=== PATIENT | male | born 1970 | race African-American/Black ===

== ENCOUNTER 2017-03-04 03:52 | Inpatient (IN) | payer MEDICAID ==
[~2017-03-04] VITALS: Ht 170.2 cm; Wt 101.3 kg
[2017-03-04] MEDS ORDERED: BUME1TAB30 PO (04:10)
[2017-03-04] MEDS ORDERED: CARV12 PO (04:10)
[2017-03-04 04:12] LABS: GLUCOSE,POINT OF CARE 149 MG/DL (70-110)
[2017-03-04] MEDS ORDERED: NITROGLYCERIN 2% (1 GM=INCH) PACKET TP ONE (04:30)
[2017-03-04] MEDS ORDERED: BUMETANIDE 0.25 MG/ML 10 ML VIAL IVP ONE (04:30)
[2017-03-04 04:45] LABS: APPEARANCE,URINE CLEAR (CLEAR); GLUCOSE, URINE (UA) NEGATIVE (NEGATIVE); KETONES,URINE NEGATIVE (NEGATIVE); LEUKOCYTE ESTERASE ,URINE NEGATIVE (NEGATIVE); OCCULT BLOOD,URINE NEGATIVE (NEGATIVE); PROTEIN,URINE NEGATIVE (NEGATIVE)
[2017-03-04 04:46] LABS: BASOPHILS # (AUTO) 0.19 K/uL (0.00-0.20); BASOPHILS % (AUTO) 1.4 % (0.0-2.0); EOSINOPHILS # (AUTO) 0.16 K/uL (0.00-0.70); EOSINOPHILS % (AUTO) 1.21 % (1.0-6.0); HEMATOCRIT 43.9 % (41-53); HEMOGLOBIN 13.9 g/dL (13.5-17.5); LYMPHOCYTES # (AUTO) 1.9 K/uL (1.0-4.8); LYMPHOCYTES % (AUTO) 14.4 % (22.0-44.0); MEAN CORPUSCULAR HEMOGLOBIN 27.2 pg (26.0-34.0); MEAN CORPUSCULAR HGB CONC 31.6 G/dL (31.0-37.0); MEAN CORPUSCULAR VOLUME 86 fL (80-100); MONOCYTES # (AUTO) 1.2 K/uL (0.1-1.0); MONOCYTES % (AUTO) 9.3 % (2.0-9.0); NEUTROPHILS # (AUTO) 9.8 K/uL (1.8-7.7); NEUTROPHILS % (AUTO) 73.7 % (40.0-70.0); PLATELET COUNT (AUTO) 315 K/uL (150-450); RED BLOOD CELL COUNT(AUTO) 5.09 MIL/uL (4.50-5.90); RED CELL DISTRIBUTION WIDTH 17.8 % (11.5-14.5); WHITE BLOOD COUNT (AUTO) 13.3 K/uL (4.5-11.0)
[2017-03-04 04:46] LABS: ADD UA MICROSCOPIC NO
[2017-03-04 04:50] LABS: CALCIUM, TOTAL 8.1 mg/dL (8.8-10.5); CREATININE 1.61 mg/dL (0.60-1.30); POTASSIUM 4.3 mmol/L (3.5-5.1)
[2017-03-04 04:56] LABS: BILIRUBIN,TOTAL 0.9 mg/dL (0.1-1.0); TOTAL PROTEIN, SERUM 6.6 g/dL (6.4-8.2)
[2017-03-04] MEDS ORDERED: ACETAMINOPHEN 325 MG TABLET PO PRN (05:45)
[2017-03-04] MEDS ORDERED: ONDANSETRON HCL 4 MG/2 ML VIAL IVP PRN (05:45)
[2017-03-04] MEDS ORDERED: 0.9% SODIUM CHLORIDE 10 ML SYRINGE IVP PRN (05:45)
[2017-03-04 08:19] VITALS: BP 124/76
[2017-03-04 11:26] VITALS: BP 124/72
[2017-03-04] MEDS ORDERED: SPIR25 PO (11:37)
[2017-03-04] MEDS ORDERED: LISI-661 PO (11:38)
[2017-03-04] MEDS ORDERED: NITROGLYCERIN 2% (1 GM=INCH) PACKET TP SCH (12:00)
[2017-03-04] MEDS ORDERED: FUROSEMIDE 20 MG/2 ML VIAL IVP ONE (13:45)
[2017-03-04] MEDS ORDERED: HEPARIN SODIUM 25000 UNITS/D5W 250 ML IV PRN (14:22)
[2017-03-04] MEDS ORDERED: HEPARIN SODIUM,PORCINE 5,000 UNITS/ML VIAL IVP PRN ×3 (14:30→15:00)
[2017-03-04 14:45] LABS: BASOPHILS % (AUTO) 0.8 % (0.0-2.0); EOSINOPHILS % (AUTO) 1.4 % (1.0-6.0); HEMATOCRIT 45.2 % (41-53); LYMPHOCYTES # (AUTO) 1.7 K/uL (1.0-4.8); LYMPHOCYTES % (AUTO) 12.6 % (22.0-44.0); MEAN CORPUSCULAR HEMOGLOBIN 26.6 pg (26.0-34.0); MEAN CORPUSCULAR HGB CONC 30.9 G/dL (31.0-37.0); MEAN CORPUSCULAR VOLUME 86 fL (80-100); MONOCYTES # (AUTO) 1.4 K/uL (0.1-1.0); MONOCYTES % (AUTO) 10.1 % (2.0-9.0); NEUTROPHILS # (AUTO) 10.2 K/uL (1.8-7.7); NEUTROPHILS % (AUTO) 75.1 % (40.0-70.0); PLATELET COUNT (AUTO) 302 K/uL (150-450); RED BLOOD CELL COUNT(AUTO) 5.27 MIL/uL (4.50-5.90); RED CELL DISTRIBUTION WIDTH 18.2 % (11.5-14.5); WHITE BLOOD COUNT (AUTO) 13.6 K/uL (4.5-11.0)
[2017-03-04 14:46] LABS: RBC MORPHOLOGY COMMENT ABNORMAL RBC MORPH
[2017-03-04 14:56] LABS: INR 1.1 (0.9-1.1); PROTHROMBIN TIME 11.9 SEC (9.4-11.6)
[2017-03-04] MEDS ORDERED: HEPARIN SODIUM,PORCINE 5,000 UNITS/ML VIAL IVP ONE (15:00)
[2017-03-04] MEDS: HEPARIN SODIUM 25000 UNITS/D5W 250 ML IV PRN (15:33)
[2017-03-04 15:56] VITALS: BP 119/79
[2017-03-04] MEDS ORDERED: HEPARIN SODIUM,PORCINE 5,000 UNITS/ML VIAL SQ SCH (16:00)
[2017-03-04] MEDS ORDERED: PNEUMOCOCCAL VACCINE POLYVALENT 0.5 ML VIAL [PPSV23] IM ONE (18:45)
[2017-03-04 19:38] VITALS: BP 118/118
[2017-03-04] MEDS: BUMETANIDE 0.25 MG/ML 10 ML VIAL IVP SCH (20:45)
[2017-03-04] MEDS: WARFARIN SODIUM 2.5 MG TABLET PO SCH (20:45)
[2017-03-04 23:33] VITALS: BP 118/69
[2017-03-05 05:06] VITALS: BP 124/87
[2017-03-05] MEDS: HEPARIN SODIUM 25000 UNITS/D5W 250 ML IV PRN ×2 (05:28→18:28)
[2017-03-05 05:32] LABS: INR 1.2 (0.9-1.1); PROTHROMBIN TIME 12.3 SEC (9.4-11.6)
[2017-03-05 07:40] VITALS: BP 115/88
[2017-03-05] MEDS: CARVEDILOL 3.125 MG TABLET PO SCH ×2 (08:59→20:46)
[2017-03-05] MEDS: BUMETANIDE 0.25 MG/ML 10 ML VIAL IVP SCH ×2 (08:59→20:47)
[2017-03-05] MEDS: HEPARIN SODIUM,PORCINE 5,000 UNITS/ML VIAL IVP PRN (09:02)
[2017-03-05 11:08] VITALS: BP 115/80
[2017-03-05] MEDS: VALSARTAN 40 MG TABLET PO SCH ×2 (11:22→20:46)
[2017-03-05 12:32] LABS: ANION GAP 4 mmol/L (8-16); CALCIUM, TOTAL 8.8 mg/dL (8.8-10.5); CARBON DIOXIDE 36 mmol/L (22-29); CHLORIDE 97 mmol/L (98-107); CREATININE 1.39 mg/dL (0.60-1.30); GLOMERULAR FILTR. RATE CALC > 60 mL/min (>60); PHOSPHORUS 3.9 mg/dL (2.5-4.9); POTASSIUM 3.9 mmol/L (3.5-5.1); SODIUM SERUM 137 mmol/L (136-145); UREA NITROGEN, BLOOD 25 mg/dL (7-18)
[2017-03-05 15:13] VITALS: BP 110/77
[2017-03-05 19:35] VITALS: BP 131/82
[2017-03-05] MEDS: WARFARIN SODIUM 2.5 MG TABLET PO SCH (20:46)
[2017-03-06 00:08] VITALS: BP 108/56
[2017-03-06 05:23] VITALS: BP 114/66
[2017-03-06 06:44] LABS: ALANINE AMINOTRANSFERASE 63 U/L (12-78); ALBUMIN 3.1 g/dL (3.4-5.0); ANION GAP 3 mmol/L (8-16); ASPARTATE AMINOTRANSFERASE 47 U/L (15-37); BILIRUBIN,TOTAL 1.5 mg/dL (0.1-1.0); CALCIUM, TOTAL 8.3 mg/dL (8.8-10.5); CARBON DIOXIDE 34 mmol/L (22-29); CHLORIDE 97 mmol/L (98-107); CREATININE 1.33 mg/dL (0.60-1.30); GLOMERULAR FILTR. RATE CALC > 60 mL/min (>60); POTASSIUM 3.9 mmol/L (3.5-5.1); SODIUM SERUM 134 mmol/L (136-145); TOTAL PROTEIN, SERUM 7.3 g/dL (6.4-8.2); UREA NITROGEN, BLOOD 24 mg/dL (7-18)
[2017-03-06 06:46] LABS: INR 1.1 (0.9-1.1); PROTHROMBIN TIME 11.7 SEC (9.4-11.6)
[2017-03-06 06:54] LABS: BASOPHILS % (AUTO) 0.5 % (0.0-2.0); EOSINOPHILS % (AUTO) 0.8 % (1.0-6.0); HEMATOCRIT 47.3 % (41-53); HEMOGLOBIN 14.7 g/dL (13.5-17.5); LYMPHOCYTES % (AUTO) 12.5 % (22.0-44.0); MEAN CORPUSCULAR HEMOGLOBIN 26.5 pg (26.0-34.0); MEAN CORPUSCULAR VOLUME 86 fL (80-100); MONOCYTES # (AUTO) 1.5 K/uL (0.1-1.0); MONOCYTES % (AUTO) 9.3 % (2.0-9.0); NEUTROPHILS # (AUTO) 12.1 K/uL (1.8-7.7); NEUTROPHILS % (AUTO) 76.9 % (40.0-70.0); PLATELET COUNT (AUTO) 307 K/uL (150-450); RED BLOOD CELL COUNT(AUTO) 5.53 MIL/uL (4.50-5.90); RED CELL DISTRIBUTION WIDTH 17.8 % (11.5-14.5); WHITE BLOOD COUNT (AUTO) 15.8 K/uL (4.5-11.0)
[2017-03-06 07:52] VITALS: BP 121/79
[2017-03-06] MEDS: BUMETANIDE 0.25 MG/ML 10 ML VIAL IVP SCH ×2 (08:02→21:40)
[2017-03-06] MEDS: HEPARIN SODIUM,PORCINE 5,000 UNITS/ML VIAL IVP PRN (08:05)
[2017-03-06] MEDS: VALSARTAN 40 MG TABLET PO SCH ×2 (09:05→23:38)
[2017-03-06] MEDS: CARVEDILOL 3.125 MG TABLET PO SCH ×2 (09:06→21:40)
[2017-03-06 11:11] VITALS: BP 127/74
[2017-03-06] MEDS: HEPARIN SODIUM 25000 UNITS/D5W 250 ML IV PRN (11:48)
[2017-03-06] MEDS ORDERED: MAGNESIUM HYDROXIDE SUSPENSION 30 ML UDCUP PO PRN (14:30)
[2017-03-06] MEDS: POLYETHYLENE GLYCOL 3350 17 GM PACKET PO SCH (15:34)
[2017-03-06 20:22] VITALS: BP 113/61
[2017-03-06] MEDS: WARFARIN SODIUM 2.5 MG TABLET PO SCH (21:40)
[2017-03-06 23:27] VITALS: BP 110/66
[2017-03-07] MEDS: HEPARIN SODIUM 25000 UNITS/D5W 250 ML IV PRN ×2 (01:16→13:33)
[2017-03-07 04:22] VITALS: BP 123/64
[2017-03-07 05:43] LABS: BASOPHILS % (AUTO) 0.2 % (0.0-2.0); EOSINOPHILS % (AUTO) 2.1 % (1.0-6.0); HEMATOCRIT 46.6 % (41-53); HEMOGLOBIN 14.4 g/dL (13.5-17.5); LYMPHOCYTES # (AUTO) 1.9 K/uL (1.0-4.8); LYMPHOCYTES % (AUTO) 14.9 % (22.0-44.0); MEAN CORPUSCULAR HEMOGLOBIN 26.5 pg (26.0-34.0); MEAN CORPUSCULAR VOLUME 86 fL (80-100); MONOCYTES # (AUTO) 1.2 K/uL (0.1-1.0); MONOCYTES % (AUTO) 9.3 % (2.0-9.0); NEUTROPHILS # (AUTO) 9.3 K/uL (1.8-7.7); NEUTROPHILS % (AUTO) 73.5 % (40.0-70.0); PLATELET COUNT (AUTO) 297 K/uL (150-450); RED BLOOD CELL COUNT(AUTO) 5.44 MIL/uL (4.50-5.90); RED CELL DISTRIBUTION WIDTH 17.9 % (11.5-14.5); WHITE BLOOD COUNT (AUTO) 12.6 K/uL (4.5-11.0)
[2017-03-07 05:52] LABS: INR 1.1 (0.9-1.1); PROTHROMBIN TIME 11.4 SEC (9.4-11.6)
[2017-03-07 05:58] LABS: ALANINE AMINOTRANSFERASE 61 U/L (12-78); ALBUMIN 2.9 g/dL (3.4-5.0); ANION GAP 1 mmol/L (8-16); ASPARTATE AMINOTRANSFERASE 43 U/L (15-37); BILIRUBIN,TOTAL 0.9 mg/dL (0.1-1.0); CALCIUM, TOTAL 8.6 mg/dL (8.8-10.5); CARBON DIOXIDE 30 mmol/L (22-29); CHLORIDE 96 mmol/L (98-107); CREATININE 1.22 mg/dL (0.60-1.30); GLOMERULAR FILTR. RATE CALC > 60 mL/min (>60); POTASSIUM 4.2 mmol/L (3.5-5.1); SODIUM SERUM 127 mmol/L (136-145); UREA NITROGEN, BLOOD 24 mg/dL (7-18)
[2017-03-07 07:35] VITALS: BP 110/64
[2017-03-07] MEDS: CARVEDILOL 3.125 MG TABLET PO SCH ×2 (08:23→21:21)
[2017-03-07] MEDS: VALSARTAN 40 MG TABLET PO SCH ×2 (08:23→21:21)
[2017-03-07] MEDS: POLYETHYLENE GLYCOL 3350 17 GM PACKET PO SCH (08:23)
[2017-03-07 09:12] LABS: RBC MORPHOLOGY COMMENT ABNORMAL RBC MORPH
[2017-03-07 11:27] VITALS: BP 112/59
[2017-03-07 15:24] VITALS: BP 142/71
[2017-03-07 19:21] VITALS: BP 109/69
[2017-03-07] MEDS: WARFARIN SODIUM 2.5 MG TABLET PO SCH (21:21)
[2017-03-08 00:46] VITALS: BP 132/67
[2017-03-08] MEDS: HEPARIN SODIUM 25000 UNITS/D5W 250 ML IV PRN ×2 (01:58→07:57)
[2017-03-08 04:14] VITALS: BP 108/64
[2017-03-08 07:01] LABS: INR 1.1 (0.9-1.1); PROTHROMBIN TIME 11.3 SEC (9.4-11.6)
[2017-03-08 07:07] LABS: BASOPHILS % (AUTO) 0.3 % (0.0-2.0); EOSINOPHILS % (AUTO) 3.1 % (1.0-6.0); HEMATOCRIT 47.7 % (41-53); HEMOGLOBIN 14.7 g/dL (13.5-17.5); LYMPHOCYTES # (AUTO) 1.5 K/uL (1.0-4.8); LYMPHOCYTES % (AUTO) 13.3 % (22.0-44.0); MEAN CORPUSCULAR HEMOGLOBIN 26.4 pg (26.0-34.0); MEAN CORPUSCULAR HGB CONC 30.7 G/dL (31.0-37.0); MEAN CORPUSCULAR VOLUME 86 fL (80-100); MONOCYTES # (AUTO) 1.1 K/uL (0.1-1.0); MONOCYTES % (AUTO) 9.7 % (2.0-9.0); NEUTROPHILS # (AUTO) 8.3 K/uL (1.8-7.7); NEUTROPHILS % (AUTO) 73.6 % (40.0-70.0); PLATELET COUNT (AUTO) 324 K/uL (150-450); RED BLOOD CELL COUNT(AUTO) 5.54 MIL/uL (4.50-5.90); RED CELL DISTRIBUTION WIDTH 18.4 % (11.5-14.5); WHITE BLOOD COUNT (AUTO) 11.3 K/uL (4.5-11.0)
[2017-03-08 07:12] LABS: ALANINE AMINOTRANSFERASE 65 U/L (12-78); ANION GAP 3 mmol/L (8-16); ASPARTATE AMINOTRANSFERASE 49 U/L (15-37); BILIRUBIN,TOTAL 0.7 mg/dL (0.1-1.0); CALCIUM, TOTAL 8.9 mg/dL (8.8-10.5); CARBON DIOXIDE 31 mmol/L (22-29); CHLORIDE 100 mmol/L (98-107); GLOMERULAR FILTR. RATE CALC > 60 mL/min (>60); POTASSIUM 4.8 mmol/L (3.5-5.1); SODIUM SERUM 134 mmol/L (136-145); TOTAL PROTEIN, SERUM 7.4 g/dL (6.4-8.2); UREA NITROGEN, BLOOD 23 mg/dL (7-18)
[2017-03-08 07:35] VITALS: BP 134/79
[2017-03-08] MEDS: VALSARTAN 40 MG TABLET PO SCH ×2 (07:57→22:18)
[2017-03-08] MEDS: CARVEDILOL 3.125 MG TABLET PO SCH (07:57)
[2017-03-08] MEDS: POLYETHYLENE GLYCOL 3350 17 GM PACKET PO SCH (07:59)
[2017-03-08 08:48] LABS: RBC MORPHOLOGY COMMENT ABNORMAL RBC MORPH
[2017-03-08 10:51] VITALS: BP 98/62
[2017-03-08] MEDS ORDERED: DEXTROSE 50%-WATER 25 GM/50 ML SYRINGE IVP PRN (11:45)
[2017-03-08] MEDS ORDERED: INSULIN ASPART 100 UNITS/ML SQ PRN (11:45)
[2017-03-08] MEDS ORDERED: HEPARIN SODIUM 1000 UNITS/NS 500 ML ONE (11:52)
[2017-03-08] MEDS ORDERED: 0.9% SODIUM CHLORIDE 10 ML VIAL IVP ONE (12:00)
[2017-03-08] MEDS ORDERED: MIDAZOLAM HCL 2 MG/2 ML VIAL IVP ONE (12:00)
[2017-03-08] MEDS ORDERED: KETAMINE HCL 50 MG/ML 10 ML VIAL IVP ONE (12:00)
[2017-03-08] MEDS ORDERED: FentaNYL CITRATE-PF 100 MCG/2 ML VIAL IVP ONE (12:00)
[2017-03-08] MEDS ORDERED: PROPOFOL 1% 20 ML VIAL IVP ONE (12:00)
[2017-03-08] MEDS ORDERED: LIDOCAINE HCL/PF 2% 5 ML VIAL INJ ONE (12:00)
[2017-03-08] MEDS ORDERED: PHENYLEPHRINE HCL 10 MG/ML VIAL IVP ONE (12:00)
[2017-03-08] MEDS ORDERED: SODIUM CHLORIDE 0.9% 1,000 ML IV ONE (13:16)
[2017-03-08] MEDS ORDERED: 0.9% SODIUM CHLORIDE 10 ML SYRINGE IVP ONE (13:29)
[2017-03-08 13:42] LABS: GLUCOSE,POINT OF CARE 126 MG/DL (70-110)
[2017-03-08 14:14] LABS: INR 1.1 (0.9-1.1); PROTHROMBIN TIME 11.4 SEC (9.4-11.6)
[2017-03-08] MEDS ORDERED: LORazepam 0.5 MG TABLET PO ONE (14:15)
[2017-03-08] MEDS ORDERED: IODIXANOL 320 MG/ML 50 ML VIAL ONE (14:25)
[2017-03-08] MEDS ORDERED: LIDOCAINE HCL/PF 1% 30 ML VIAL ONE (14:46)
[2017-03-08] MEDS ORDERED: BUPIVACAINE HCL/PF 0.25% 30 ML VIAL ONE (14:46)
[2017-03-08] MEDS ORDERED: GUM MASTIC/STORAX/MSAL/ALCOHOL LIQUID 0.67 ML VIAL TP ONE (14:46)
[2017-03-08] MEDS ORDERED: SODIUM CHLORIDE 0.9% 10 ML ONE (17:52)
[2017-03-08] MEDS ORDERED: BUPIVACAINE LIPOSOME/PF 1.3%-13.3MG/ML SUSPENSION 20 ML VIAL INJ ONE (19:30)
[2017-03-08] MEDS ORDERED: MEPERIDINE-PF 25 MG/ML SYRINGE IVP PRN (20:15)
[2017-03-08] MEDS ORDERED: FentaNYL CITRATE-PF 100 MCG/2 ML VIAL IVP PRN (20:15)
[2017-03-08] MEDS ORDERED: FUROSEMIDE 40 MG/4 ML VIAL IVP ONE (20:15)
[2017-03-08] MEDS ORDERED: HYDROmorphone 2 MG/ML SYRINGE IVP PRN (20:15)
[2017-03-08] MEDS ORDERED: WARFARIN SODIUM 5 MG TABLET PO SCH (21:00)
[2017-03-08 22:05] VITALS: BP 125/55
[2017-03-08] MEDS: CARVEDILOL 6.25 MG TABLET PO SCH (22:17)
[2017-03-09] VITALS: BP 126/80
[2017-03-09 04:15] VITALS: BP 107/61
[2017-03-09 07:17] VITALS: BP 114/75
[2017-03-09 07:28] LABS: BASOPHILS # (AUTO) 0.02 K/uL (0.00-0.20); BASOPHILS % (AUTO) 0.2 % (0.0-2.0); EOSINOPHILS # (AUTO) 0.15 K/uL (0.00-0.70); EOSINOPHILS % (AUTO) 1.28 % (1.0-6.0); HEMATOCRIT 46.7 % (41-53); HEMOGLOBIN 14.5 g/dL (13.5-17.5); LYMPHOCYTES % (AUTO) 8.9 % (22.0-44.0); MEAN CORPUSCULAR HGB CONC 31.1 G/dL (31.0-37.0); MEAN CORPUSCULAR VOLUME 87 fL (80-100); MONOCYTES # (AUTO) 1.3 K/uL (0.1-1.0); MONOCYTES % (AUTO) 11.2 % (2.0-9.0); NEUTROPHILS % (AUTO) 78.5 % (40.0-70.0); PLATELET COUNT (AUTO) 309 K/uL (150-450); RED BLOOD CELL COUNT(AUTO) 5.38 MIL/uL (4.50-5.90); RED CELL DISTRIBUTION WIDTH 18.2 % (11.5-14.5); WHITE BLOOD COUNT (AUTO) 11.5 K/uL (4.5-11.0)
[2017-03-09 07:43] LABS: INR 1.1 (0.9-1.1); PROTHROMBIN TIME 11.6 SEC (9.4-11.6); RBC MORPHOLOGY COMMENT ABNORMAL RBC MORPH
[2017-03-09] MEDS ORDERED: OXYGEN THERAPY IH SCH (08:00)
[2017-03-09 08:03] LABS: ANION GAP 8 mmol/L (8-16); CALCIUM, TOTAL 8.5 mg/dL (8.8-10.5); CARBON DIOXIDE 26 mmol/L (22-29); CHLORIDE 98 mmol/L (98-107); CREATININE 1.18 mg/dL (0.60-1.30); GLOMERULAR FILTR. RATE CALC > 60 mL/min (>60); POTASSIUM 4.7 mmol/L (3.5-5.1); SODIUM SERUM 132 mmol/L (136-145); UREA NITROGEN, BLOOD 21 mg/dL (7-18)
[2017-03-09] MEDS: VALSARTAN 40 MG TABLET PO SCH (08:27)
[2017-03-09] MEDS: CARVEDILOL 6.25 MG TABLET PO SCH (08:27)
[2017-03-09] MEDS: POLYETHYLENE GLYCOL 3350 17 GM PACKET PO SCH (08:28)
[2017-03-09 11:15] VITALS: BP 124/83
[2017-03-09] MEDS ORDERED: WARF4TAB41 PO (12:44)
[2017-03-09] MEDS ORDERED: VALS40TA4 PO (12:45)
[2017-03-09 15:41] VITALS: BP 122/78
[2017-03-09 17:08] LABS: GLUCOSE,POINT OF CARE 111 MG/DL (70-110)
== END 2017-03-09 16:30 | disposition home or self-care (01) | DRG 161 ==
LOC: EMS 03:56 → 5S 06:09
PROVIDERS: ADMIT Family Medicine; ATTEND Family Medicine
PROC: 3E0234Z Introduction of Serum, Toxoid and Vaccine into Muscle, Percutaneous Approach (ICD-10-PCS; 2017-03-04)
PROC: 02H63KZ Insertion of Defibrillator Lead into Right Atrium, Percutaneous Approach (ICD-10-PCS; 2017-03-08)
PROC: 02HK3KZ Insertion of Defibrillator Lead into Right Ventricle, Percutaneous Approach (ICD-10-PCS; 2017-03-08)
PROC: 0JH608Z Insertion of Defibrillator Generator into Chest Subcutaneous Tissue and Fascia, Open Approach (ICD-10-PCS; principal; 2017-03-08 14:00)
DX: I11.0 Hypertensive heart disease with heart failure (principal); N17.0 Acute kidney failure with tubular necrosis; I47.2 Ventricular tachycardia; I42.0 Dilated cardiomyopathy; E11.9 Type 2 diabetes mellitus without complications; E78.00 Pure hypercholesterolemia, unspecified; F17.210 Nicotine dependence, cigarettes, uncomplicated; E78.5 Hyperlipidemia, unspecified; F15.10 Other stimulant abuse, uncomplicated; I50.23 Acute on chronic systolic (congestive) heart failure; Z79.899 Other long term (current) drug therapy; Z91.14 Patient's other noncompliance with medication regimen; Z86.718 Personal history of other venous thrombosis and embolism; Z23 Encounter for immunization
CPT/HCPCS: 33249; 74010; 76000; 80307; 82271; 82962; 83735; 84100; 90471; 93005; 93306; 96374; 99285; C9290; J0690; J1644; J1940; J2250; J2370; J2704; J3010; J3490; J7030; Q9967

== ENCOUNTER 2019-07-31 07:09 | Inpatient (IN) | payer MEDICAID ==
[~2019-07-31] VITALS: Ht 170.2 cm; Wt 89.9 kg
[~2019-07-31 07:09] MED LIST: BUME1TAB34 PO; CARV12 PO; LISI-661 PO; SPIR25 PO; VALS40TA4 PO; WARF4TAB41 PO
[2019-07-31 07:28] LABS: ABG A-A DIFF O2 293.8 mmHg (10-20.0); ABG BASE EXCESS -6.9 mmol/L (-2.0-3.0); ABG CARBOXYHEMOGLOBIN 2.1 % (0.0-1.5); ABG METHEMOGLOBIN 0.3 % (0.0-1.5); ABG OXYGEN CONTENT 22.7 mL/dL (15.0-23.0); ABG OXYGEN SATURATION 99.6 % (95.0-98.0); ABG OXYHEMOGLOBIN 97.2 % (94.0-100.0); ABG PCO2 47 mmHg (35-45); ABG PH 7.253 (7.35-7.450); ABG TOTAL HEMOGLOBIN 15.9 G/dL (12.0-18.0); PO2, ARTERIAL BG 372.1 mmHg (88.0-96.0); SOURCE, BLOOD GAS ARTERIAL; TEMPERATURE, FAHRENHEIT, BG 98.6 FAHREN (96.0-98.6)
[2019-07-31 07:29] LABS: O2 DEVICE,BLOOD GAS BIPAP (ROOM AIR); SITE, BLOOD GAS RT RADIAL
[2019-07-31] MEDS ORDERED: ALBUTEROL SULFATE 2.5 MG/0.5 ML NEB SOLUTION NEB ONE ×2 (07:33→07:34)
[2019-07-31] MEDS ORDERED: IPRATROPIUM BROMIDE 0.5 MG/2.5 ML NEB SOLUTION NEB ONE ×2 (07:33→08:00)
[2019-07-31 07:40] LABS: GLUCOSE,POINT OF CARE 537 MG/DL (70-110)
[2019-07-31 07:53] LABS: BASOPHILS % (AUTO) 0.8 % (0.0-2.0); EOSINOPHILS % (AUTO) 3.8 % (1.0-6.0); HEMATOCRIT 51.2 % (41-53); HEMOGLOBIN 16.8 g/dL (13.5-17.5); LYMPHOCYTES # (AUTO) 1.9 K/uL (1.0-4.8); MEAN CORPUSCULAR HEMOGLOBIN 29.4 pg (26.0-34.0); MEAN CORPUSCULAR HGB CONC 32.8 G/dL (31.0-37.0); MEAN CORPUSCULAR VOLUME 90 fL (80-100); MONOCYTES # (AUTO) 0.8 K/uL (0.1-1.0); MONOCYTES % (AUTO) 6.3 % (2.0-9.0); NEUTROPHILS # (AUTO) 8.8 K/uL (1.8-7.7); NEUTROPHILS % (AUTO) 73.1 % (40.0-70.0); PLATELET COUNT (AUTO) 335 K/uL (150-450); RED CELL DISTRIBUTION WIDTH 13.7 % (11.5-14.5)
[2019-07-31 07:58] LABS: D-DIMER 1.68 mg/L FEU (0.00-0.50); INR 0.9 (0.9-1.1); PROTHROMBIN TIME 9.6 SEC (9.4-11.6)
[2019-07-31] MEDS ORDERED: ALBUTEROL SULFATE 5 MG/ML 20 ML NEB SOLN [BULK] NEB ONE ×2 (08:00→08:30)
[2019-07-31 08:09] LABS: LACTIC ACID 3.6 mmol/L (0.4-2.0)
[2019-07-31 08:20] LABS: ALBUMIN 3.5 g/dL (3.4-5.0); BILIRUBIN,TOTAL 0.6 mg/dL (0.1-1.0); CALCIUM, TOTAL 9.2 mg/dL (8.8-10.5); CREATININE 1.88 mg/dL (0.60-1.30); MAGNESIUM 2.6 mg/dL (1.80-2.40); TOTAL PROTEIN, SERUM 8.4 g/dL (6.4-8.2)
[2019-07-31 08:24] LABS: POTASSIUM 6.2 mmol/L (3.5-5.1)
[2019-07-31] MEDS ORDERED: SODIUM BICARBONATE [ADULT] 8.4% 50 MEQ/50 ML SYRINGE IVP ONE (08:30)
[2019-07-31] MEDS ORDERED: INSULIN REGULAR, HUMAN 100 UNITS/ML IVP ONE (08:30)
[2019-07-31] MEDS ORDERED: SODIUM CHLORIDE 0.9% 1,000 ML IV ONE (08:30)
[2019-07-31] MEDS ORDERED: SODIUM CHLORIDE 0.9% 100 ML ONE (09:08)
[2019-07-31] MEDS ORDERED: IOVERSOL 350 MG/ML 100 ML VIAL ONE (09:08)
[2019-07-31 09:16] LABS: GLUCOSE,POINT OF CARE 506 MG/DL (70-110)
[2019-07-31] MEDS ORDERED: ACETAMINOPHEN 325 MG TABLET PO PRN ×2 (13:15→14:15)
[2019-07-31] MEDS ORDERED: ONDANSETRON HCL 4 MG/2 ML VIAL IVP PRN ×2 (13:15→14:15)
[2019-07-31] MEDS ORDERED: LEVOFLOXACIN 750 MG/D5% WATER 150 ML IV SCH (14:00)
[2019-07-31] MEDS ORDERED: ALBUTEROL SULFATE 2.5 MG/0.5 ML NEB SOLUTION NEB PRN ×2 (14:15)
[2019-07-31] MEDS ORDERED: IPRATROPIUM BROMIDE 0.5 MG/2.5 ML NEB SOLUTION NEB PRN (14:15)
[2019-07-31] MEDS ORDERED: MAGNESIUM HYDROXIDE SUSPENSION 30 ML UDCUP PO PRN (14:15)
[2019-07-31] MEDS ORDERED: HYDROCODONE/ACETAMINOPHEN 5-325 MG TABLET PO PRN (14:15)
[2019-07-31] MEDS ORDERED: BISACODYL 10 MG RECTAL RECTAL SUPPOSITORY PR PRN (14:15)
[2019-07-31] MEDS ORDERED: MORPHINE SULFATE 2 MG/ML SYRINGE IVP PRN (14:15)
[2019-07-31] MEDS ORDERED: ZOLPIDEM TARTRATE 5 MG TABLET PO PRN (14:15)
[2019-07-31 15:46] LABS: GLUCOSE,POINT OF CARE 256 MG/DL (70-110)
[2019-07-31 15:52] VITALS: BP 110/68
[2019-07-31] MEDS: HEPARIN SODIUM,PORCINE 5,000 UNITS/ML VIAL SQ SCH (16:59)
[2019-07-31] MEDS: INSULIN LISPRO 100 UNITS/ML SQ PRN ×2 (18:29→21:22)
[2019-07-31] MEDS ORDERED: DEXTROSE 50%-WATER 25 GM/50 ML SYRINGE IVP PRN (18:30)
[2019-07-31] MEDS ORDERED: INFLUENZA VIRUS VACCINE QVS 2019-20 (3YR+)/PF 60 MCG/0.5 ML SYRINGE IM ONE (19:15)
[2019-07-31 19:53] VITALS: BP 120/71
[2019-07-31] MEDS: FUROSEMIDE 20 MG/2 ML VIAL IVP SCH (20:04)
[2019-07-31] MEDS: DOCUSATE SODIUM 100 MG CAPSULE PO SCH (20:05)
[2019-07-31 21:26] LABS: GLUCOMETER DEV NAME(LOC) 5S.1; GLUCOSE,POINT OF CARE 364 MG/DL (70-110)
[2019-08-01] VITALS (7 sets, daily range): BP systolic 100–121; BP diastolic 57–74
[2019-08-01] MEDS: HEPARIN SODIUM,PORCINE 5,000 UNITS/ML VIAL SQ SCH ×3 (00:52→16:07)
[2019-08-01 06:40] LABS: BASOPHILS % (AUTO) 0.5 % (0.0-2.0); EOSINOPHILS % (AUTO) 4.1 % (1.0-6.0); HEMATOCRIT 42.7 % (41-53); HEMOGLOBIN 14.3 g/dL (13.5-17.5); LYMPHOCYTES # (AUTO) 2.1 K/uL (1.0-4.8); LYMPHOCYTES % (AUTO) 17.8 % (22.0-44.0); MEAN CORPUSCULAR HEMOGLOBIN 29.4 pg (26.0-34.0); MEAN CORPUSCULAR HGB CONC 33.6 G/dL (31.0-37.0); MEAN CORPUSCULAR VOLUME 88 fL (80-100); MONOCYTES # (AUTO) 0.9 K/uL (0.1-1.0); MONOCYTES % (AUTO) 7.8 % (2.0-9.0); NEUTROPHILS # (AUTO) 8.2 K/uL (1.8-7.7); NEUTROPHILS % (AUTO) 69.8 % (40.0-70.0); PLATELET COUNT (AUTO) 257 K/uL (150-450); RED BLOOD CELL COUNT(AUTO) 4.86 MIL/uL (4.50-5.90); RED CELL DISTRIBUTION WIDTH 13.8 % (11.5-14.5)
[2019-08-01] MEDS: INSULIN LISPRO 100 UNITS/ML SQ PRN ×4 (06:43→22:20)
[2019-08-01 06:51] LABS: ANION GAP 6 mmol/L (8-16); CALCIUM, TOTAL 8.5 mg/dL (8.8-10.5); CARBON DIOXIDE 30 mmol/L (22-29); CHLORIDE 101 mmol/L (98-107); CREATININE 1.15 mg/dL (0.60-1.30); GLOMERULAR FILTR. RATE CALC > 60 mL/min (>60); GLUCOSE,RANDOM 231 mg/dL (70-110); POTASSIUM 3.8 mmol/L (3.5-5.1); SODIUM SERUM 137 mmol/L (136-145)
[2019-08-01 06:57] LABS: GLUCOMETER DEV NAME(LOC) 5S.2A; GLUCOSE,POINT OF CARE 183 MG/DL (70-110)
[2019-08-01 07:26] LABS: LACTIC ACID 2.4 mmol/L (0.4-2.0)
[2019-08-01 07:34] LABS: UREA NITROGEN, BLOOD 17 mg/dL (7-18)
[2019-08-01] MEDS: DOCUSATE SODIUM 100 MG CAPSULE PO SCH ×2 (07:58→21:20)
[2019-08-01] MEDS: FUROSEMIDE 20 MG/2 ML VIAL IVP SCH (07:58)
[2019-08-01] MEDS: PANTOPRAZOLE SODIUM 40 MG DR TABLET PO SCH (07:58)
[2019-08-01] MEDS ORDERED: CefTRIAXone 1 GM/DEXTROSE 50 ML IV SCH (11:00)
[2019-08-01] MEDS: CARVEDILOL 12.5 MG TABLET PO SCH (12:08)
[2019-08-01] MEDS: DOXYCYCLINE HYCLATE 100 MG CAPSULE PO SCH ×2 (12:08→21:20)
[2019-08-01] MEDS: SPIRONOLACTONE 25 MG TABLET PO SCH (12:08)
[2019-08-01 16:56] LABS: GLUCOMETER DEV NAME(LOC) 5S.1; GLUCOSE,POINT OF CARE 300 MG/DL (70-110)
[2019-08-01 16:56] LABS: GLUCOMETER DEV NAME(LOC) 5S.1; GLUCOSE,POINT OF CARE 246 MG/DL (70-110)
[2019-08-01] MEDS: FUROSEMIDE 40 MG TABLET PO SCH (21:20)
[2019-08-02] MEDS: HEPARIN SODIUM,PORCINE 5,000 UNITS/ML VIAL SQ SCH ×2 (00:29→09:28)
[2019-08-02 04:14] VITALS: BP 123/59
[2019-08-02] MEDS: INSULIN LISPRO 100 UNITS/ML SQ PRN (06:15)
[2019-08-02 06:51] LABS: BASOPHILS % (AUTO) 0.7 % (0.0-2.0); HEMATOCRIT 41.7 % (41-53); HEMOGLOBIN 14.4 g/dL (13.5-17.5); LYMPHOCYTES # (AUTO) 1.9 K/uL (1.0-4.8); LYMPHOCYTES % (AUTO) 20.9 % (22.0-44.0); MEAN CORPUSCULAR HGB CONC 34.5 G/dL (31.0-37.0); MEAN CORPUSCULAR VOLUME 87 fL (80-100); MONOCYTES # (AUTO) 0.8 K/uL (0.1-1.0); MONOCYTES % (AUTO) 8.9 % (2.0-9.0); NEUTROPHILS # (AUTO) 5.6 K/uL (1.8-7.7); NEUTROPHILS % (AUTO) 63.5 % (40.0-70.0); PLATELET COUNT (AUTO) 234 K/uL (150-450); RED BLOOD CELL COUNT(AUTO) 4.79 MIL/uL (4.50-5.90); RED CELL DISTRIBUTION WIDTH 13.8 % (11.5-14.5)
[2019-08-02 07:12] LABS: GLUCOMETER DEV NAME(LOC) 5S.1; GLUCOSE,POINT OF CARE 233 MG/DL (70-110)
[2019-08-02 07:12] LABS: GLUCOMETER DEV NAME(LOC) 5S.1; GLUCOSE,POINT OF CARE 232 MG/DL (70-110)
[2019-08-02 07:12] LABS: GLUCOMETER DEV NAME(LOC) 5S.1; GLUCOSE,POINT OF CARE 239 MG/DL (70-110)
[2019-08-02 07:18] LABS: ANION GAP 10 mmol/L (8-16); CALCIUM, TOTAL 8.1 mg/dL (8.8-10.5); CARBON DIOXIDE 25 mmol/L (22-29); CHLORIDE 104 mmol/L (98-107); CHOL/HDL RATIO 7.7 (4.2-7.3); CHOLESTEROL 230 mg/dL (131-200); CREATININE 1.05 mg/dL (0.60-1.30); GLOMERULAR FILTR. RATE CALC > 60 mL/min (>60); GLUCOSE,RANDOM 243 mg/dL (70-110); HDL CHOLESTEROL 30 mg/dL (40-60); LDL CHOL (CALC.) 138 mg/dL (0-130); SODIUM SERUM 139 mmol/L (136-145); TRIGLYCERIDES 312 mg/dL (15-150); UREA NITROGEN, BLOOD 19 mg/dL (7-18)
[2019-08-02 08:17] VITALS: BP 113/70
[2019-08-02] MEDS: FUROSEMIDE 40 MG TABLET PO SCH (09:25)
[2019-08-02] MEDS: DOCUSATE SODIUM 100 MG CAPSULE PO SCH (09:26)
[2019-08-02] MEDS: DOXYCYCLINE HYCLATE 100 MG CAPSULE PO SCH (09:26)
[2019-08-02] MEDS: PANTOPRAZOLE SODIUM 40 MG DR TABLET PO SCH (09:26)
[2019-08-02] MEDS: CARVEDILOL 12.5 MG TABLET PO SCH (09:26)
[2019-08-02] MEDS: SPIRONOLACTONE 25 MG TABLET PO SCH (09:27)
[2019-08-02] MEDS ORDERED: LISI-660 PO (11:15)
[2019-08-02] MEDS ORDERED: DOXY100C PO (11:15)
[2019-08-02] MEDS ORDERED: FURO40 PO (11:15)
[2019-08-02] MEDS ORDERED: GLIP5 PO (11:15)
[2019-08-02] MEDS ORDERED: ATOR20TA86 PO (11:15)
[2019-08-02] MEDS ORDERED: CEPH500 PO (11:15)
[2019-08-02] MEDS ORDERED: CARV6 PO (11:15)
== END 2019-08-02 11:30 | disposition home or self-care (01) | DRG 720 ==
LOC: EMS 07:10 → 5S 14:17 → 5N 16:23
PROVIDERS: ADMIT Internal Medicine; ATTEND Internal Medicine
PROC: 5A09357 Assistance with Respiratory Ventilation, Less than 24 Consecutive Hours, Continuous Positive Airway Pressure (ICD-10-PCS; 2019-07-31)
PROC: 5A09357 Assistance with Respiratory Ventilation, Less than 24 Consecutive Hours, Continuous Positive Airway Pressure (ICD-10-PCS; principal; 2019-08-01)
DX: A41.9 Sepsis, unspecified organism (principal); J96.01 Acute respiratory failure with hypoxia; I47.2 Ventricular tachycardia; I50.23 Acute on chronic systolic (congestive) heart failure; E87.2 Acidosis; J18.9 Pneumonia, unspecified organism; I11.0 Hypertensive heart disease with heart failure; I42.8 Other cardiomyopathies; E78.5 Hyperlipidemia, unspecified; E11.65 Type 2 diabetes mellitus with hyperglycemia; E78.00 Pure hypercholesterolemia, unspecified; F17.210 Nicotine dependence, cigarettes, uncomplicated; Z91.14 Patient's other noncompliance with medication regimen; Z95.810 Presence of automatic (implantable) cardiac defibrillator
CPT/HCPCS: 36600; 71260; 72193; 74160; 82010; 82805; 83605; 83735; 84132; 84145; 85379; 87040; 87070; 87205; 90686; 93005; 93306; 94640; 94660; 99291; J0696; J1644; J1815; J1940; J1956; J3490; J7050

== ENCOUNTER 2019-12-01 00:43 | Inpatient (IN) | payer MEDICAID ==
[~2019-12-01] VITALS: Ht 167.6 cm; Wt 92.6 kg
[~2019-12-01 00:43] MED LIST changes: +ATOR20TA86 PO; -BUME1TAB34 PO; -CARV12 PO; +CARV6 PO; +CEPH500 PO; +DOXY100C PO; +FURO40 PO; +GLIP5 PO; +LISI-660 PO; -LISI-661 PO; -VALS40TA4 PO; -WARF4TAB41 PO
[2019-12-01] MEDS ORDERED: METF-960 PO (00:53)
[2019-12-01] MEDS ORDERED: IPRATROPIUM BROMIDE 0.5 MG/2.5 ML NEB SOLUTION NEB ONE (01:00)
[2019-12-01] MEDS ORDERED: ALBUTEROL SULFATE 2.5 MG/0.5 ML NEB SOLUTION NEB ONE (01:00)
[2019-12-01 01:14] LABS: GLUCOSE,POINT OF CARE 225 MG/DL (70-110)
[2019-12-01 01:23] LABS: BASOPHILS % (AUTO) 0.7 % (0.0-2.0); EOSINOPHILS % (AUTO) 0.1 % (1.0-6.0); HEMATOCRIT 46.3 % (41-53); HEMOGLOBIN 14.9 g/dL (13.5-17.5); LYMPHOCYTES # (AUTO) 1.3 K/uL (1.0-4.8); LYMPHOCYTES % (AUTO) 11.2 % (22.0-44.0); MEAN CORPUSCULAR HEMOGLOBIN 27.9 pg (26.0-34.0); MEAN CORPUSCULAR HGB CONC 32.1 G/dL (31.0-37.0); MEAN CORPUSCULAR VOLUME 87 fL (80-100); MONOCYTES # (AUTO) 1.6 K/uL (0.1-1.0); MONOCYTES % (AUTO) 14.3 % (2.0-9.0); NEUTROPHILS # (AUTO) 8.2 K/uL (1.8-7.7); NEUTROPHILS % (AUTO) 73.7 % (40.0-70.0); PLATELET COUNT (AUTO) 295 K/uL (150-450); RED BLOOD CELL COUNT(AUTO) 5.33 MIL/uL (4.50-5.90); RED CELL DISTRIBUTION WIDTH 16.4 % (11.5-14.5)
[2019-12-01 01:33] LABS: CALCIUM, TOTAL 8.2 mg/dL (8.8-10.5); CREATININE 1.55 mg/dL (0.60-1.30); POTASSIUM 3.7 mmol/L (3.5-5.1)
[2019-12-01 01:43] LABS: ALBUMIN 3.3 g/dL (3.4-5.0); BILIRUBIN,TOTAL 1.6 mg/dL (0.1-1.0); TOTAL PROTEIN, SERUM 6.9 g/dL (6.4-8.2)
[2019-12-01] MEDS ORDERED: BUMETANIDE 0.25 MG/ML 4 ML VIAL IVP ONE (02:15)
[2019-12-01] MEDS ORDERED: 0.9% SODIUM CHLORIDE 10 ML SYRINGE IVP PRN (03:30)
[2019-12-01] MEDS ORDERED: ONDANSETRON HCL 4 MG/2 ML VIAL IVP PRN (03:30)
[2019-12-01] MEDS ORDERED: ACETAMINOPHEN 325 MG TABLET PO PRN (03:30)
[2019-12-01 06:07] VITALS: BP 101/79
[2019-12-01 07:35] VITALS: BP 120/76
[2019-12-01] MEDS ORDERED: INSULIN LISPRO 100 UNITS/ML SQ PRN (10:00)
[2019-12-01] MEDS ORDERED: DEXTROSE 50%-WATER 25 GM/50 ML SYRINGE IVP PRN (10:00)
[2019-12-01 11:33] VITALS: BP 128/78
[2019-12-01 15:18] VITALS: BP 131/72
[2019-12-01] MEDS ORDERED: SPIRONOLACTONE 25 MG TABLET PO SCH (17:15)
[2019-12-01] MEDS ORDERED: LISINOPRIL 5 MG TABLET PO SCH (17:15)
[2019-12-01 20:25] LABS: GLUCOMETER DEV NAME(LOC) 5S.2A; GLUCOSE,POINT OF CARE 239 MG/DL (70-110)
[2019-12-01] MEDS ORDERED: FUROSEMIDE 40 MG/4 ML VIAL IVP SCH (21:00)
[2019-12-01] MEDS ORDERED: ATORVASTATIN CALCIUM 20 MG TABLET PO SCH (21:00)
[2019-12-01] MEDS ORDERED: CARVEDILOL 6.25 MG TABLET PO SCH (21:00)
== END 2019-12-01 17:20 | disposition left against medical advice (07) | DRG 194 ==
LOC: EMS 00:44 → 5S 04:00
PROVIDERS: ADMIT Internal Medicine; ATTEND Internal Medicine
DX: I11.0 Hypertensive heart disease with heart failure (principal); E87.1 Hypo-osmolality and hyponatremia; N19 Unspecified kidney failure; I50.41 Acute combined systolic (congestive) and diastolic (congestive) heart failure; E11.9 Type 2 diabetes mellitus without complications; E78.00 Pure hypercholesterolemia, unspecified; J45.909 Unspecified asthma, uncomplicated; K59.00 Constipation, unspecified; F17.210 Nicotine dependence, cigarettes, uncomplicated; F15.90 Other stimulant use, unspecified, uncomplicated; Z53.29 Procedure and treatment not carried out because of patient's decision for other reasons; Z95.0 Presence of cardiac pacemaker; Z79.899 Other long term (current) drug therapy
CPT/HCPCS: 87081; 93005; 94060; 94640; G0378; J3490

== ENCOUNTER 2019-12-20 00:50 | Inpatient (IN) | payer MEDICAID ==
[~2019-12-20] VITALS: Ht 170.2 cm; Wt 98.7 kg
[~2019-12-20 00:50] MED LIST changes: -CEPH500 PO; -DOXY100C PO; +METF-960 PO
[2019-12-20 01:26] LABS: GLUCOSE,POINT OF CARE 113 MG/DL (70-110)
[2019-12-20 01:57] LABS: BASOPHILS % (AUTO) 0.9 % (0.0-2.0); EOSINOPHILS % (AUTO) 0.2 % (1.0-6.0); HEMATOCRIT 46.3 % (41-53); HEMOGLOBIN 14.9 g/dL (13.5-17.5); LYMPHOCYTES # (AUTO) 1.8 K/uL (1.0-4.8); LYMPHOCYTES % (AUTO) 15.4 % (22.0-44.0); MEAN CORPUSCULAR HEMOGLOBIN 27.7 pg (26.0-34.0); MEAN CORPUSCULAR HGB CONC 32.1 G/dL (31.0-37.0); MEAN CORPUSCULAR VOLUME 86 fL (80-100); NEUTROPHILS # (AUTO) 8.6 K/uL (1.8-7.7); NEUTROPHILS % (AUTO) 74.5 % (40.0-70.0); PLATELET COUNT (AUTO) 340 K/uL (150-450); RED BLOOD CELL COUNT(AUTO) 5.37 MIL/uL (4.50-5.90); RED CELL DISTRIBUTION WIDTH 16.6 % (11.5-14.5)
[2019-12-20 02:07] LABS: CREATININE 1.82 mg/dL (0.60-1.30); POTASSIUM 5.8 mmol/L (3.5-5.1)
[2019-12-20 02:13] LABS: BILIRUBIN,TOTAL 1.4 mg/dL (0.1-1.0); TOTAL PROTEIN, SERUM 6.7 g/dL (6.4-8.2)
[2019-12-20] MEDS ORDERED: INSULIN REGULAR, HUMAN 100 UNITS/ML IVP ONE (03:15)
[2019-12-20] MEDS ORDERED: CALCIUM GLUCONATE 0.465 MEQ/ML 10 ML VIAL IVP ONE (03:15)
[2019-12-20] MEDS ORDERED: ASPIRIN 325 MG TABLET PO ONE (03:15)
[2019-12-20] MEDS ORDERED: FUROSEMIDE 40 MG/4 ML VIAL IVP ONE (03:15)
[2019-12-20] MEDS ORDERED: DEXTROSE 50%-WATER 25 GM/50 ML SYRINGE IVP ONE (03:15)
[2019-12-20] MEDS ORDERED: ACETAMINOPHEN 325 MG TABLET PO PRN ×2 (03:30→11:45)
[2019-12-20] MEDS ORDERED: AMOXICILLIN TRIHYDRATE 250 MG CAPSULE PO ONE (03:30)
[2019-12-20] MEDS ORDERED: ACETAMINOPHEN 325 MG TABLET PO ONE (03:30)
[2019-12-20] MEDS ORDERED: 0.9% SODIUM CHLORIDE 10 ML SYRINGE IVP PRN (03:30)
[2019-12-20] MEDS ORDERED: ONDANSETRON HCL 4 MG/2 ML VIAL IVP PRN (03:30)
[2019-12-20 04:51] VITALS: BP 139/76
[2019-12-20 08:21] VITALS: BP 91/72
[2019-12-20 08:21] LABS: GLUCOMETER DEV NAME(LOC) 5S.2A; GLUCOSE,POINT OF CARE 66 MG/DL (70-110)
[2019-12-20] MEDS ORDERED: MAGNESIUM HYDROXIDE SUSPENSION 30 ML UDCUP PO PRN (11:45)
[2019-12-20] MEDS ORDERED: DEXTROSE 50%-WATER 25 GM/50 ML SYRINGE IVP PRN (11:45)
[2019-12-20] MEDS ORDERED: ALBUTEROL SULFATE 2.5 MG/0.5 ML NEB SOLUTION NEB PRN (11:45)
[2019-12-20] MEDS ORDERED: LORazepam 1 MG TABLET PO PRN (12:00)
[2019-12-20 12:05] LABS: GLUCOMETER DEV NAME(LOC) 5S.2A; GLUCOSE,POINT OF CARE 230 MG/DL (70-110)
[2019-12-20 12:06] LABS: GLUCOMETER DEV NAME(LOC) 5S.2A; GLUCOSE,POINT OF CARE 149 MG/DL (70-110)
[2019-12-20 12:07] VITALS: BP 97/67
[2019-12-20] MEDS ORDERED: 0.9% SODIUM CHLORIDE 5 ML NEB SOLUTION NEB ONE (14:19)
[2019-12-20] MEDS: AMOXICILLIN TRIHYDRATE 500 MG CAPSULE PO SCH ×2 (15:11→21:15)
[2019-12-20] MEDS: HEPARIN SODIUM,PORCINE 5,000 UNITS/ML VIAL SQ SCH ×2 (15:11→23:42)
[2019-12-20 19:41] VITALS: BP 144/97
[2019-12-20 19:58] LABS: GLUCOMETER DEV NAME(LOC) 5N.2; GLUCOSE,POINT OF CARE 121 MG/DL (70-110)
[2019-12-20] MEDS: DOCUSATE SODIUM 100 MG CAPSULE PO SCH (21:15)
[2019-12-20 22:13] LABS: GLUCOMETER DEV NAME(LOC) 5S.2A; GLUCOSE,POINT OF CARE 121 MG/DL (70-110)
[2019-12-20 23:51] VITALS: BP 151/71
[2019-12-20] MEDS: ZOLPIDEM TARTRATE 5 MG TABLET PO PRN (23:55)
[2019-12-21 00:08] LABS: GLUCOMETER DEV NAME(LOC) 5S.2A; GLUCOSE,POINT OF CARE 92 MG/DL (70-110)
[2019-12-21 05:37] VITALS: BP 146/76
[2019-12-21] MEDS: INSULIN LISPRO 100 UNITS/ML SQ PRN (06:11)
[2019-12-21 07:05] LABS: BASOPHILS % (AUTO) 0.4 % (0.0-2.0); EOSINOPHILS % (AUTO) 0.1 % (1.0-6.0); HEMOGLOBIN 15.1 g/dL (13.5-17.5); LYMPHOCYTES # (AUTO) 2.2 K/uL (1.0-4.8); LYMPHOCYTES % (AUTO) 17.2 % (22.0-44.0); MEAN CORPUSCULAR HGB CONC 31.5 G/dL (31.0-37.0); MEAN CORPUSCULAR VOLUME 86 fL (80-100); MONOCYTES # (AUTO) 1.4 K/uL (0.1-1.0); NEUTROPHILS # (AUTO) 9.1 K/uL (1.8-7.7); NEUTROPHILS % (AUTO) 71.3 % (40.0-70.0); PLATELET COUNT (AUTO) 316 K/uL (150-450); RED BLOOD CELL COUNT(AUTO) 5.61 MIL/uL (4.50-5.90); RED CELL DISTRIBUTION WIDTH 16.2 % (11.5-14.5)
[2019-12-21 07:13] VITALS: BP 107/71
[2019-12-21 07:26] LABS: ALBUMIN 2.8 g/dL (3.4-5.0); CALCIUM, TOTAL 8.4 mg/dL (8.8-10.5); CREATININE 1.69 mg/dL (0.60-1.30); MAGNESIUM 2.4 mg/dL (1.80-2.40); PHOSPHORUS 4.3 mg/dL (2.5-4.9); POTASSIUM 5.5 mmol/L (3.5-5.1); TOTAL PROTEIN, SERUM 6.5 g/dL (6.4-8.2)
[2019-12-21] MEDS ORDERED: SODIUM CHLORIDE 1 GM TABLET PO SCH (08:15)
[2019-12-21] MEDS: DOCUSATE SODIUM 100 MG CAPSULE PO SCH ×2 (09:00→21:04)
[2019-12-21] MEDS: FAMOTIDINE 20 MG TABLET PO SCH (09:43)
[2019-12-21] MEDS: AMOXICILLIN TRIHYDRATE 500 MG CAPSULE PO SCH ×3 (09:43→21:04)
[2019-12-21] MEDS: HEPARIN SODIUM,PORCINE 5,000 UNITS/ML VIAL SQ SCH ×3 (09:43→23:01)
[2019-12-21 09:54] LABS: ABG CARBOXYHEMOGLOBIN 1.4 % (0.0-1.5); ABG HCO3 17.5 mmol/L (22.0-26.0); ABG METHEMOGLOBIN 0.3 % (0.0-1.5); ABG OXYGEN CONTENT 20.5 mL/dL (15.0-23.0); ABG OXYGEN SATURATION 94.5 % (95.0-98.0); ABG OXYHEMOGLOBIN 92.9 % (94.0-100.0); ABG PH 7.455 (7.35-7.450); ABG TOTAL HEMOGLOBIN 15.7 G/dL (12.0-18.0); SOURCE, BLOOD GAS ARTERIAL; TEMPERATURE, FAHRENHEIT, BG 98.4 FAHREN (96.0-98.6)
[2019-12-21 09:55] LABS: ABG PCO2 17 mmHg (35-45); SITE, BLOOD GAS LFT RADIAL
[2019-12-21 09:56] LABS: O2 DEVICE,BLOOD GAS ROOM AIR (ROOM AIR)
[2019-12-21] MEDS: FUROSEMIDE 40 MG/4 ML VIAL IVP SCH (10:04)
[2019-12-21] MEDS ORDERED: TOLVAPTAN 15 MG TABLET PO ONE (10:45)
[2019-12-21 11:07] VITALS: BP 103/69
[2019-12-21 15:12] VITALS: BP 141/68
[2019-12-21 17:27] LABS: GLUCOMETER DEV NAME(LOC) 5S.2A; GLUCOSE,POINT OF CARE 110 MG/DL (70-110)
[2019-12-21 19:36] VITALS: BP 112/69
[2019-12-21 20:59] LABS: CALCIUM, TOTAL 8.5 mg/dL (8.8-10.5); CREATININE 1.7 mg/dL (0.60-1.30); POTASSIUM 5.6 mmol/L (3.5-5.1)
[2019-12-21 22:34] LABS: APPEARANCE,URINE CLEAR (CLEAR); BILIRUBIN,URINE NEGATIVE (NEGATIVE); GLUCOSE, URINE (UA) NEGATIVE (NEGATIVE); KETONES,URINE NEGATIVE (NEGATIVE); LEUKOCYTE ESTERASE ,URINE NEGATIVE (NEGATIVE); NITRATE,URINE NEGATIVE (NEGATIVE); OCCULT BLOOD,URINE NEGATIVE (NEGATIVE); PH,URINE 5.5 (5.0-8.0); PROTEIN,URINE NEGATIVE (NEGATIVE)
[2019-12-21 22:35] LABS: BACTERIA,URINE None Seen /HPF (None Seen); RBC,URINE None Seen /HPF (0-2); WBC,URINE None Seen /HPF (0-5)
[2019-12-21 22:41] LABS: CREATININE,URINE RANDOM 29.3 mg/dL (30.0-125.0); SODIUM,URINE RANDOM 6 mmol/l (20-110); UREA NITROGEN,URINE RANDOM 488 mg/dL (350-1000)
[2019-12-21 22:44] LABS: OSMOLALITY,URINE 253 mOS/kg (50-1200)
[2019-12-21] MEDS ORDERED: FUROSEMIDE 40 MG/4 ML VIAL IVP ONE (23:00)
[2019-12-21] MEDS: ZOLPIDEM TARTRATE 5 MG TABLET PO PRN (23:07)
[2019-12-21 23:36] VITALS: BP 110/79
[2019-12-22 05:04] VITALS: BP 139/63
[2019-12-22 05:44] LABS: GLUCOMETER DEV NAME(LOC) 5N.2; GLUCOSE,POINT OF CARE 158 MG/DL (70-110)
[2019-12-22 05:44] LABS: GLUCOMETER DEV NAME(LOC) 5N.2; GLUCOSE,POINT OF CARE 138 MG/DL (70-110)
[2019-12-22 05:44] LABS: GLUCOMETER DEV NAME(LOC) 5N.2; GLUCOSE,POINT OF CARE 124 MG/DL (70-110)
[2019-12-22] MEDS: HEPARIN SODIUM,PORCINE 5,000 UNITS/ML VIAL SQ SCH ×2 (07:55→16:00)
[2019-12-22 08:00] VITALS: BP 99/58
[2019-12-22 08:33] LABS: CALCIUM, TOTAL 8.2 mg/dL (8.8-10.5); CREATININE 1.74 mg/dL (0.60-1.30); POTASSIUM 5.8 mmol/L (3.5-5.1)
[2019-12-22] MEDS: DOCUSATE SODIUM 100 MG CAPSULE PO SCH ×2 (08:45→21:00)
[2019-12-22] MEDS: FAMOTIDINE 20 MG TABLET PO SCH (08:45)
[2019-12-22] MEDS: FUROSEMIDE 40 MG/4 ML VIAL IVP SCH ×3 (08:45→20:56)
[2019-12-22] MEDS: AMOXICILLIN TRIHYDRATE 500 MG CAPSULE PO SCH ×3 (08:45→20:56)
[2019-12-22 09:19] LABS: THYROID STIMULATING HORMONE 3.38 uIU/mL (0.36-3.74)
[2019-12-22] MEDS ORDERED: SODIUM POLYSTYRENE SULFONATE 15 GM/60 ML SUSPENSION BOTTLE PO ONE (10:00)
[2019-12-22] MEDS ORDERED: TOLVAPTAN 15 MG TABLET PO ONE (11:00)
[2019-12-22 12:24] VITALS: BP 162/75
[2019-12-22 14:13] LABS: GLUCOMETER DEV NAME(LOC) 5N.2; GLUCOSE,POINT OF CARE 105 MG/DL (70-110)
[2019-12-22 16:00] VITALS: BP 116/74
[2019-12-22 20:37] VITALS: BP 125/53
[2019-12-22] MEDS: INSULIN LISPRO 100 UNITS/ML SQ PRN (22:17)
[2019-12-23 00:06] VITALS: BP 105/66
[2019-12-23] MEDS: HEPARIN SODIUM,PORCINE 5,000 UNITS/ML VIAL SQ SCH ×3 (00:18→16:00)
[2019-12-23 01:13] LABS: GLUCOMETER DEV NAME(LOC) 5N.1; GLUCOSE,POINT OF CARE 144 MG/DL (70-110)
[2019-12-23 01:13] LABS: GLUCOMETER DEV NAME(LOC) 5N.1; GLUCOSE,POINT OF CARE 153 MG/DL (70-110)
[2019-12-23 03:55] VITALS: BP 137/59
[2019-12-23 06:10] LABS: GLUCOMETER DEV NAME(LOC) 5N.2; GLUCOSE,POINT OF CARE 146 MG/DL (70-110)
[2019-12-23] MEDS: INSULIN LISPRO 100 UNITS/ML SQ PRN ×2 (06:13→21:11)
[2019-12-23] MEDS: FUROSEMIDE 40 MG/4 ML VIAL IVP SCH ×2 (08:57→20:56)
[2019-12-23] MEDS: DOCUSATE SODIUM 100 MG CAPSULE PO SCH ×2 (08:58→20:56)
[2019-12-23] MEDS: AMOXICILLIN TRIHYDRATE 500 MG CAPSULE PO SCH ×3 (08:58→20:56)
[2019-12-23] MEDS: FAMOTIDINE 20 MG TABLET PO SCH (08:58)
[2019-12-23 12:38] LABS: CALCIUM, TOTAL 8.3 mg/dL (8.8-10.5); CREATININE 1.56 mg/dL (0.60-1.30); MAGNESIUM 2.3 mg/dL (1.80-2.40); PHOSPHORUS 3.3 mg/dL (2.5-4.9); POTASSIUM 4.4 mmol/L (3.5-5.1)
[2019-12-23] MEDS ORDERED: TOLVAPTAN 15 MG TABLET PO ONE (13:45)
[2019-12-23 16:41] LABS: GLUCOMETER DEV NAME(LOC) 5N.1; GLUCOSE,POINT OF CARE 163 MG/DL (70-110)
[2019-12-23 17:49] VITALS: BP 99/69
[2019-12-23 20:33] VITALS: BP 116/89
[2019-12-23] MEDS: ZOLPIDEM TARTRATE 5 MG TABLET PO PRN (20:56)
[2019-12-23 23:56] VITALS: BP 108/69
[2019-12-24 04:27] VITALS: BP 101/76
[2019-12-24] MEDS: INSULIN LISPRO 100 UNITS/ML SQ PRN ×3 (06:03→18:01)
[2019-12-24 07:22] LABS: BILIRUBIN,TOTAL 1.9 mg/dL (0.1-1.0); CALCIUM, TOTAL 8.4 mg/dL (8.8-10.5); CREATININE 1.53 mg/dL (0.60-1.30); MAGNESIUM 2.5 mg/dL (1.80-2.40); PHOSPHORUS 2.7 mg/dL (2.5-4.9); POTASSIUM 4.8 mmol/L (3.5-5.1); TOTAL PROTEIN, SERUM 6.7 g/dL (6.4-8.2)
[2019-12-24 07:54] VITALS: BP 123/64
[2019-12-24] MEDS: FUROSEMIDE 40 MG/4 ML VIAL IVP SCH (08:38)
[2019-12-24] MEDS: HEPARIN SODIUM,PORCINE 5,000 UNITS/ML VIAL SQ SCH ×3 (08:38→15:26)
[2019-12-24] MEDS: DOCUSATE SODIUM 100 MG CAPSULE PO SCH (08:38)
[2019-12-24] MEDS: FAMOTIDINE 20 MG TABLET PO SCH (08:38)
[2019-12-24] MEDS: AMOXICILLIN TRIHYDRATE 500 MG CAPSULE PO SCH ×2 (08:40→15:26)
[2019-12-24] MEDS ORDERED: TOLVAPTAN 15 MG TABLET PO ONE (08:45)
[2019-12-24] MEDS ORDERED: POVIDONE-IODINE 10% 240 ML SOLUTION TP SCH (11:15)
[2019-12-24 11:54] VITALS: BP 105/61
[2019-12-24 12:04] LABS: INR 1.7 (0.9-1.1); PROTHROMBIN TIME 16.8 SEC (9.4-11.6)
[2019-12-24 12:20] LABS: GLUCOMETER DEV NAME(LOC) 5S.2A; GLUCOSE,POINT OF CARE 179 MG/DL (70-110)
[2019-12-24 12:20] LABS: GLUCOMETER DEV NAME(LOC) 5S.2A; GLUCOSE,POINT OF CARE 195 MG/DL (70-110)
[2019-12-24 12:34] LABS: GLUCOMETER DEV NAME(LOC) 5N.1; GLUCOSE,POINT OF CARE 209 MG/DL (70-110)
[2019-12-24 13:36] LABS: GLUCOMETER DEV NAME(LOC) 5N.2; GLUCOSE,POINT OF CARE 113 MG/DL (70-110)
[2019-12-24 13:37] LABS: GLUCOMETER DEV NAME(LOC) 5N.2; GLUCOSE,POINT OF CARE 154 MG/DL (70-110)
[2019-12-24 16:15] VITALS: BP 108/66
[2019-12-25 04:58] LABS: GLUCOMETER DEV NAME(LOC) 5N.1; GLUCOSE,POINT OF CARE 184 MG/DL (70-110)
== END 2019-12-24 18:06 | disposition left against medical advice (07) | DRG 194 ==
LOC: EMS 00:52 → 5S 04:01
PROVIDERS: ADMIT Internal Medicine; ATTEND Internal Medicine
DX: I13.0 Hypertensive heart and chronic kidney disease with heart failure and stage 1 through stage 4 chronic kidney disease, or unspecified chronic kidney disease (principal); K72.00 Acute and subacute hepatic failure without coma; E11.22 Type 2 diabetes mellitus with diabetic chronic kidney disease; R65.10 Systemic inflammatory response syndrome (SIRS) of non-infectious origin without acute organ dysfunction; E44.0 Moderate protein-calorie malnutrition; E87.1 Hypo-osmolality and hyponatremia; I42.8 Other cardiomyopathies; I50.23 Acute on chronic systolic (congestive) heart failure; E87.5 Hyperkalemia; N18.3 Chronic kidney disease, stage 3 (moderate); F19.10 Other psychoactive substance abuse, uncomplicated; E78.5 Hyperlipidemia, unspecified; E78.00 Pure hypercholesterolemia, unspecified; F17.200 Nicotine dependence, unspecified, uncomplicated; F12.90 Cannabis use, unspecified, uncomplicated; F15.90 Other stimulant use, unspecified, uncomplicated; K02.9 Dental caries, unspecified; G47.33 Obstructive sleep apnea (adult) (pediatric); K80.20 Calculus of gallbladder without cholecystitis without obstruction; E66.9 Obesity, unspecified; J45.909 Unspecified asthma, uncomplicated; Z53.29 Procedure and treatment not carried out because of patient's decision for other reasons; Z91.19 Patient's noncompliance with other medical treatment and regimen; Z95.810 Presence of automatic (implantable) cardiac defibrillator; Z79.899 Other long term (current) drug therapy; Z68.34 Body mass index [BMI] 34.0-34.9, adult
CPT/HCPCS: 76705; 82533; 82570; 82805; 83735; 83935; 84100; 84300; 84443; 84540; 87081; 93005; 94640; 94660; 99291; G0378; J0610; J1644; J1815; J1940